=== PATIENT | female | born 1950 | race African-American/Black ===

== ENCOUNTER 2020-05-08 13:26 | Emergency (ER) | payer MEDICARE, MEDICAID, OTHER ==
[~2020-05-08] VITALS: Ht 152.4 cm; Wt 79.0 kg
[2020-05-08 16:44] VITALS: BP 128/71
== END 2020-05-08 16:45 | disposition home or self-care (01) ==
LOC: ER 13:26
DX: J01.90 Acute sinusitis, unspecified (principal); Z88.6 Allergy status to analgesic agent
CPT/HCPCS: 82962; 99283

== ENCOUNTER 2025-03-22 20:15 | Emergency (ER) | payer OTHER ==
[~2025-03-22] VITALS: Ht 160 cm; Wt 100.0 kg
[2025-03-22 20:28] VITALS: O2SAT 97
[2025-03-22 22:32] LABS: BASOPHILS % 1.0 % (0.0-2.0); EOSINOPHILS % 4.9 % (0.0-5.0); HEMATOCRIT. 40.9 % (36.0-48.0); HEMOGLOBIN. 13.2 g/dL (12.0-16.0); LYMPHOCYTES % 24.0 % (20.0-50.0); MEAN PLATELET VOLUME 11.7 fl (7.4-10.4); MONOCYTES % 7.0 % (2.0-8.0); NEUTROPHILS % 63.1 % (40.0-76.0); PLATELET 190 x1000/uL (130-400); RED BLOOD CELL COUNT 4.65 mill/uL (4.2-5.4); RED CELL DISTRIBUTION WIDTH 14.3 % (11.6-14.6)
[2025-03-22 22:44] LABS: CREATININE 1.4 mg/dL (0.6-1.0); UREA NITROGEN BLOOD 16.0 mg/dL (9-23)
[2025-03-22] MEDS ORDERED: HYDRALAZINE 20MG/ML VIAL IV ONE (23:00)
[2025-03-23 00:30] VITALS: BP 150/87; PULSE 61; RESP 12; TEMP 36.4; O2SAT 97
[2025-03-23] MEDS ORDERED: FAMO-135 MT (00:34)
[2025-03-23] MEDS ORDERED: ONDA4TAB50 MT (00:35)
[2025-03-23] MEDS ORDERED: TOPUD MT (00:35)
[2025-03-23] MEDS ORDERED: MAG-55 MT (00:35)
== END 2025-03-23 02:31 | disposition home or self-care (01) ==
LOC: ER 20:15
DX: E11.65 Type 2 diabetes mellitus with hyperglycemia (principal); I10 Essential (primary) hypertension; Z79.899 Other long term (current) drug therapy; Z88.5 Allergy status to narcotic agent
CPT/HCPCS: 36415; 71045; 80048; 82962; 85025; 93005; 99285